=== PATIENT | female | born 2000 | race Caucasian/White ===

== ENCOUNTER 2022-05-31 23:40 | Emergency (ER) | payer MEDICAID, SELFPAY ==
--- NOTE | ~2022-05-31 | CT_ITS ---
EXAMINATION: CTA chest PE protocol DATE: 06/01/2022 01:14 INDICATION: Elevated d-dimer. Pleuritic chest pain. TECHNIQUE: Computed tomography (CT) pulmonary angiogram of the chest was performed with 100 mL Omnipa que-350 intravenous contrast. Additional 3D reconstructions utilizing coronal maximum intensity proje ction (MIP) were performed. Automated exposure control and iterative reconstruction technique were em ployed. The dose-length product was 163.75 mGy-cm. COMPARISON: None FINDINGS: Diagnostic quality study demonstrating no pulmonary embolism. No pneumonia, pulmonary edema or pleura l effusion. Glenohumeral linear discoid atelectasis in the left lower lobe. 2 mm subpleural nodule in the left lower lobe which given size and patient age is almost certainly benign sequela of old granu lomatous disease requiring no further follow-up. Heart size is normal. No pericardial effusion. Thora cic aorta is normal in caliber with no dissection. No pathologically enlarged thoracic lymphadenopath y. Visualized upper abdomen and bones are unremarkable. IMPRESSION: 1. No pulmonary embolism or other acute cardiopulmonary disease. Reviewed, dictated and finalized at location A. [employer]ER
--- NOTE | ~2022-05-31 | XR_ITS ---
EXAMINATION: XR chest 2V DATE: 06/01/2022 00:12 INDICATION: Left-sided chest pain TECHNIQUE: PA and lateral views of the chest were obtained. COMPARISON: None FINDINGS: The lungs are clear with no focal airspace opacities, pulmonary edema, pleural effusion or pneumothor ax. The cardiomediastinal silhouette is normal. Mild associated curvature of the thoracolumbar spine. IMPRESSION: 1. No acute cardiopulmonary disease. Reviewed, dictated and finalized at location A. MASKER
[2022-05-31 23:46] VITALS: BP 117/67; PULSE 84; RESP 16; TEMP 36.7; O2SAT 100
--- NOTE | 2022-05-31 23:49 | ECG_ITS ---
Measurements Intervals [place] Rate: 94 P: 62 VA: 119 QRS: 67 QRSD: 84 T: 40 QT: 331 QTc: 415 Interpretive Statements SINUS RHYTHM WITH SINUS ARRHYTHMIA WITH SHORT VA INTERVAL BORDERLINE ST-T WAVE ABNORMALITY- INFERIOR LEADS BASELINE ARTIFACT- I, III, AVR, AVL BORDERLINE ECG NO PREVIOUS ECG AVAILABLE FOR COMPARISON Electronically Signed On 06-01-2022 8:26:02 SITE MEDICAL DIRECTOR by Salvatore Chen D.O.
[2022-05-31 23:51] VITALS: O2SAT 100
--- NOTE | 2022-05-31 23:55 | ED.CHESTPAIN ---
HPI - Chest Pain General Chief Complaint: Chest Pain <AP Salas Last Filed: 06/01/22 16:54> Stated Complaint: Chest pain <AP Salas Last Filed: 06/01/22 16:54> Time Seen by Provider: 05/31/22 23:48 <AP Salas Last Filed: 06/01/22 16:54> History of Present Illness HPI narrative: Patient is a 21-year-old female here for evaluation of pleuritic chest pain today. Patient states the pain came on while she was cleaning her house, described it as a sharp pain behind her left breast and worse with deep breaths. The pain was severe in nature, lasting for about 30 minutes, before resolving without intervention. Associated with some palpitations. denies history of previous similar pain. No syncope, nausea, vomiting, shortness of breath, fevers or chills, cough. She does take oral contraceptives. No leg swelling, calf pain, recent surgeries or long travel. <AP Salas Last Filed: 06/01/22 16:54> Related Data Allergies/Adverse Reactions: Allergies Allergy/AdvReac Type Severity Reaction Status Date / Time No Known Allergies Allergy Verified 05/31/22 23:51 <AP Salas Last Filed: 06/01/22 16:54> Review of Systems Review of Systems: Gen.: Denies fevers or chills Eyes: Denies eye pain or visual change ENT: Denies congestion Respiratory: Denies shortness of breath or cough CV: Reports chest pain GI: Denies abdominal pain nausea, emesis or diarrhea denies burning, urgency, frequency or hematuria Musculoskeletal: Denies back pain or muscle pain Neuro: Denies numbness, tingling, weakness or focal weakness Skin: Denies rash Except as documented, all other systems reviewed and negative <AP Salas Last Filed: 06/01/22 16:54> Exam Narrative: APPEARANCE: Well appearing, no pain in distress, well-nourished. Head: Normocephalic and atraumatic. EYES: PERRLA/EOMI, conjunctivae clear NOSE: No nasal drainage EARS: External ear normal in appearance THROAT: Oropharynx is clear. Mucous membranes are moist. NECK: Supple. No adenopathy, no masses. RESPIRATORY: Airway patent, respirations nonlabored. Clear to auscultation bilaterally, no rales, rhonchi, wheezing. CARDIOVASCULAR: Regular rate and rhythm without murmurs, rubs, or gallops. ABDOMINAL: Normoactive bowel sounds. Soft, nontender, nondistended. No rebound tenderness or guarding. MUSCULOSKELETAL: No tenderness to palpation of the left breast. No masses, overlying skin changes, nipple inversion or discharge noted to the breast. Extremities are warm and well-perfused. Moves all extremities well. No edema. NEURO: Normal speech. No focal neurologic deficits. SKIN: Skin is warm and dry. No rashes. PSYCHIATRIC: Normal affect/mood. <Renae Naik PA-C - Last Filed: 06/01/22 16:54> Course VOICE INTERCEPT TECHNICIAN/PA Physician Supervision 01:00 - The patient was signed out to me by CEM Naik pending CT PE study. 02:25 - CT negative for PE or acute cardiothoracic process. The patient states she is now pain-free. Discussed return emergency cautions including signs/symptoms of respiratory distress and sepsis. The patient voiced understanding and is comfortable with the plan. All questions answered to her satisfaction. <Jordy Yang MD - Last Filed: 06/01/22 02:27> Vital Signs Vital signs: Vital Signs Temperature 98.0 F 05/31/22 23:46 Pulse Rate 84 05/31/22 23:46 Respiratory Rate 16 05/31/22 23:46 Blood Pressure 117/67 05/31/22 23:46 Pulse Oximetry 100 05/31/22 23:46 Oxygen Delivery Room Air 05/31/22 23:46 Temperature 98.0 F 05/31/22 23:46 Pulse Rate 94 06/01/22 02:15 Respiratory Rate 19 06/01/22 02:15 Blood Pressure 121/91 H 06/01/22 00:41 Pulse Oximetry 100 06/01/22 02:15 Oxygen Delivery Room Air 05/31/22 23:51 <Renae Naik PA-C - Last Filed: 06/01/22 16:54> Vital Signs
[2022-06-01 00:01] LABS: Basophils Percent Auto 0.6 % (0.2-1.2); Eosinophils Absolute Auto 0.1 K/mm3 (0-0.3); Eosinophils Percent Auto 1.8 % (0-4.4); Hematocrit 41.7 % (37.0-47.0); Immature Granulocyte Absolute 0.01 K/mm3 (0.00-0.031); Immature Granulocyte Percent A 0.1 % (0-0.5); Lymphocytes Percent Auto 47.6 % (18.3-44.2); Mean Corpuscular HGB Conc 33.6 g/dl (32-36); Mean Corpuscular Hemoglobin 31.1 pg (26-34); Mean Corpuscular Volume 92.7 fl (80-100); Mean Platelet Volume 10.2 fl (7.4-10.4); Monocytes Absolute Auto 0.4 K/mm3 (0.1-0.6); Monocytes Percent Auto 5.9 % (2.6-8.5); Neutrophils Absolute Auto 3.2 K/mm3 (1.3-6.7); Platelet Count Result 196 k/mm3 (150-375); Red Cell Distribution Width 12.2 % (11.5-14.5); White Blood Count 7.2 K/mm3 (4.5-10.0)
[2022-06-01 00:21] LABS: Alanine Aminotransferase 17 U/L (6-35); Albumin Level 4.4 g/dL (3.5-5.1); Alkaline Phosphatase 69 U/L (38-126); Anion Gap 6 mmol/L (8-16); Aspartate Amino Transferase 24 U/L (14-36); Bilirubin,Total 0.4 mg/dL (0.2-1.3); Blood Urea Nitrogen 12 mg/dL (7-17); Calcium 9.1 mg/dL (8.4-10.2); Carbon Dioxide 25 mmol/L (22-30); Chloride 107 mmol/L (98-107); Estimated CRCL calculation 103 ml/min; Estimated Glomerular Filt Rate > 60; Glucose 100 mg/dL (65-110); Potassium 4.1 mmol/L (3.4-5.0); Sodium 138 mmol/L (137-145)
[2022-06-01 00:23] LABS: D Dimer 0.58 ug/mL (<0.48)
[2022-06-01 00:32] LABS: Troponin I < 0.012 ng/mL (0.000-0.034)
[2022-06-01 00:41] VITALS: BP 121/91; PULSE 87; RESP 20; O2SAT 98
--- NOTE | 2022-06-01 01:04 | PC.NURSE ---
Pt to CT via wheelchair at this time.
[2022-06-01 02:15] VITALS: PULSE 94; RESP 19; O2SAT 100
== END 2022-06-01 02:34 | disposition home or self-care (01) ==
PROVIDERS: Physician Assistant; Emergency Provider Preventive Medicine Aerospace Medicine
DX: R07.89 Other chest pain (principal); R94.31 Abnormal electrocardiogram [ECG] [EKG]
CPT/HCPCS: 36415; 71046; 71275; 80053; 81025; 84484; 85025; 85380; 93005; 99284; Q9967